=== PATIENT | male | born 1955 | race Caucasian/White ===

== ENCOUNTER 2016-06-27 06:22 | Emergency (ER) | payer OTHER ==
[2016-06-27 04:02] LABS: BASOPHILS 0.4 %; BASOPHILS ABSOLUTE 0.05 10/3/uL (0.0-0.16); EOSINOPHILS 3.3 %; EOSINOPHILS ABSOLUTE 0.37 10/3/uL (0.0-0.53); ER CBC TAT 0 Hrs 12 Mins; HEMATOCRIT 44.1 % (40.0-51.0); HEMOGLOBIN 15.9 g/dL (13.6-17.8); IMMATURE GRANULOCYTES 0.4 %; IMMATURE GRANULOCYTES ABSOLUTE 0.05 10/3/uL (0.0-0.11); LYMPHOCYTES 23.1 %; LYMPHOCYTES ABSOLUTE 2.59 10/3/uL (0.67-4.30); MANUAL DIFF NO %; MEAN CORPUS HGB CONC 36.1 g/dL (32.0-36.0); MEAN CORPUSCULAR HEMOGLOB 33.5 pg (26.0-34.0); MONOCYTES 6.6 %; MONOCYTES ABSOLUTE 0.74 10/3/uL (0.21-1.20); NEUTROPHILS 66.2 %; PLATELET COUNT 249 10/3/uL (150-400); RBC DISTRIBUTION WIDTH 13.2 % (12.0-16.0); RED CELL COUNT 4.74 10/6/uL (4.7-6.1); WHITE BLOOD CELLS 11.2 10/3/uL (4.5-10.5)
[2016-06-27 04:17] LABS: ALBUMIN 3.7 G/DL (3.5-5.0); ALKALINE PHOSPHATASE 96 U/L (45-117); BUN (BLOOD UREA NITROGEN) 18 MG/DL (6-23); CHLORIDE, SERUM 105 MMOL/L (96-112); CO2 (CARBON DIOXIDE) 26 MMOL/L (24-34); CREATININE 1.38 MG/DL (0.70-1.30); GFR AFRICAN AMERICAN 63 ML/MIN (>=60); GFR NON AFRICAN AMERICAN 54 ML/MIN (>=60); GLOBULIN 3.7 G/DL (2.5-4.1); GLUCOSE, SERUM 110 MG/DL (60-99); POTASSIUM, SERUM 3.7 MMOL/L (3.5-5.3); SGOT(AST) 15 U/L (5-40); SGPT(ALT) 28 U/L (5-65); SODIUM, SERUM 144 MMOL/L (135-148); TOTAL PROTEIN 7.4 G/DL (6.0-8.5)
[2016-06-27 04:22] LABS: TOTAL BILIRUBIN 1.2 MG/DL (0-1.2)
[2016-06-27 06:17] LABS: BD FL SOURCE (NOT ORD) LEFT KNEE
[~2016-06-27 06:22] MED LIST: ASA5GR PO; COSAMIN DS1 TAB PO; IBU800 PO; LIPITOR20 PO; LIPITOR80 MG PO; LISINOPRIL40 MG PO; PLAVIX PO; PROTONIX PO; REFRES1 OPH; REG PO; TRAZ50 PO; TRIDERM0.1 % TOP
[2016-06-27 06:36] LABS: BF TOTAL CELL CT (NOT ORD 20355 /MM3; BODY FLUID RBC (NOT ORD) 1000 /MM3
[2016-06-27 06:37] LABS: BD FL LYMPH (NOT ORD) 2 %; BF BASO (NOT OF) 0 %; BF LARGE MONONUCLEAR 2 %; BODY FLUID EOS (NOT ORD) 0 %; BODY FLUID SEG (NOT ORD) 96 %
[2016-06-27 06:46] LABS: ASCORBIC ACID (UR NOT ORDER) NEG (NEG); BILIRUBIN, URINE NEGATIVE (NEG); ER URINALYSIS TAT 0 Hrs 00 Mins; KETONE, URINE NEGATIVE (NEG); LEUKOCYTE ESTERASE(NOT OR NEG (NEG); NITRITE (URINE) NEG (NEG); WBC (NOT ORDERED) (RFLEX) 0 (0-5)
== END 2016-06-27 07:06 | disposition home or self-care (01) ==
LOC: ER 06:22
PROVIDERS: Emergency Medicine; Nurse Practitioner
DX: M17.12 Unilateral primary osteoarthritis, left knee (principal); I25.2 Old myocardial infarction; I10 Essential (primary) hypertension; Z79.899 Other long term (current) drug therapy
CPT/HCPCS: 73560-LT; 80053; 81001; 83605; 85025; 87040; 87070; 87205; 89051; 89060; 96374; 99284; J1170; J2405